=== PATIENT | male | born 1960 | race Caucasian/White ===

== ENCOUNTER → 2017-09-26 | Outpatient (CLI) | payer BC ==
[2017-09-26 09:49] LABS: HCT 49.1 % (39.0-53.0); HGB 15.7 gm/dL (13.0-17.5); MCH 27.3 pg (25.0-35.0); MCHC 31.9 g/dL (31.0-37.0); MCV 85.6 fL (80.0-100.0); Mean Platelet Volume 6.8; Platelet Count 224 k/uL (150-450); RBC 5.74 m/uL (4.30-5.90)
[2017-09-26 10:06] LABS: ALT 50 U/L (21-72); AST 32 U/L (17-59); Anion Gap 8 mmol/L; Blood Urea Nitrogen 16 mg/dL (9-20); Calcium 9.2 mg/dL (8.4-10.2); Carbon Dioxide 23 mmol/L (22-30); Chloride 108 mmol/L (98-107); Cholesterol 171 mg/dL (<200); Creatine Kinase 98 U/L (55-170); Glucose 96 mg/dL (74-99); HDL Cholesterol 42 mg/dL (40-60); LDL Cholesterol,Calculated 92 mg/dL (0-99); Potassium 4.8 mmol/L (3.5-5.1); Sodium 139 mmol/L (137-145); Triglycerides 187 mg/dL (<150)
[2017-09-26 10:35] LABS: Prostate Specific Antigen 2.05 ng/mL (0.00-4.00)
== END | disposition home or self-care (01) ==
LOC: LABWHC1 09:14
PROVIDERS: ATTEND Internal Medicine Interventional Cardiology
DX: I25.10 Atherosclerotic heart disease of native coronary artery without angina pectoris (principal); I10 Essential (primary) hypertension
CPT/HCPCS: 36415; 80048; 80061; 82550; 84153; 84450; 84460; 85027

== ENCOUNTER → 2020-02-04 | Outpatient (CLI) | payer BC ==
[2020-02-04 20:00] LABS: Chol/HDL Ratio 4.71; LDL Cholesterol,Calculated 112.8 mg/dL (0.0-131.0); VLDL Calculation 39.2 mg/dL (5.00-40.00)
== END | disposition home or self-care (01) ==
LOC: LABWHC1 08:41
PROVIDERS: ATTEND Nurse Practitioner
DX: E78.2 Mixed hyperlipidemia (principal)
CPT/HCPCS: 36415; 80061; 84450; 84460

== ENCOUNTER → 2020-08-15 | Outpatient (CLI) | payer BC | END | disposition home or self-care (01) | DX: M50.223 Other cervical disc displacement at C6-C7 level (principal) ==

== ENCOUNTER → 2021-01-19 | Outpatient (CLI) | payer BC ==
--- NOTE | 2021-01-19 11:39 | XR ---
EXAMINATION TYPE: XR chest 2V DATE OF EXAM: 01/19/2021 COMPARISON: 06/10/2013 HISTORY: 60-year-old male J20.9, acute bronchitis, shortness of breath. TECHNIQUE: Frontal and lateral views FINDINGS: Heart normal size. Aorta and pulmonary vasculature within normal limits. Old healed left-sided rib fr acture deformities. No consolidation or pleural effusion. Old healed left mid clavicular shaft fractu re deformity. IMPRESSION: Old left-sided rib fractures and old fracture of the left midclavicular shaft. No acute process seen.
== END | disposition home or self-care (01) ==
LOC: RADXRMAIN 09:37
PROVIDERS: ATTEND Physician Assistant Medical
DX: R06.02 Shortness of breath (principal)
CPT/HCPCS: 71046